=== PATIENT | male | born 1965 | race Caucasian/White ===

== ENCOUNTER → 2023-09-13 06:38 | Day surgery (SDC) | payer BC, SELFPAY ==
[2023-09-13 07:58] LABS: Glucose - Point of Care 74 mg/dl (70-99)
== END ==
LOC: GI 06:38
PROVIDERS: ATTENDING PHYSICIAN Internal Medicine Gastroenterology; FAMILY PHYSICIAN Family Medicine
DX: Z12.11 Encounter for screening for malignant neoplasm of colon (principal); K64.8 Other hemorrhoids; Z86.010 Personal history of colon polyps
CPT/HCPCS: G0105; 82962